=== PATIENT | female | born 1985 | race Caucasian/White ===

== ENCOUNTER → 2016-06-28 | Outpatient (CLI) | payer BC ==
[~2016-06-28] MED LIST: BCPILLS PO
--- NOTE | 2016-06-28 13:48 | DIAGNOSTIC IMAGING REPORT ---
HYSTEROSALPINGOGRAM HISTORY: Infertility. FLUOROSCOPY TIME: 0.8 minutes. 5 fluoroscopic spot images submitted.. TECHNIQUE: The cervix was cannulated by the nuclear process engineer-acid painter and water soluble contrast was instilled into the uterus under fluoroscopic guidance. Multiple spot images were obtained. FINDINGS: Initial images demonstrate contrast opacification of the balloon of the catheter. This is followed by injection of contrast into the uterine cavity. There is a linear filling defect seen along the left side of the uterine cavity suggestive of a synechia. The fallopian tubes are patent and there is free peritoneal spill bilaterally. IMPRESSION: Linear filling defects seen within the left side of the uterine cavity suggestive of synechia. The fallopian tubes are normal in caliber and demonstrate free peritoneal spill bilaterally. Electronically signed by: Duglas Velazco M.D. 06/28/2016 1:46 PM Dictated Date/Time: 06/28/2016 12:02 PM
== END | disposition home or self-care (01) ==
LOC: C.RAD 10:55
PROVIDERS: ATTEND Obstetrics & Gynecology
DX: Z31.41 Encounter for fertility testing (principal)

== ENCOUNTER 2022-09-26 07:32 | Inpatient (IN) ==
[2022-09-26] MEDS ORDERED: OXYTOCIN 30 UNITS/500 ML BAG IV PRN ×2 (08:03→08:41)
[2022-09-26] MEDS ORDERED: LIDOCAINE 1% LOCAL 20 ML VIAL INFIL PRN (08:03)
[2022-09-26 08:56] LABS: Hematocrit (blood only) 36.1 % (37.0-47.0); Hemoglobin 12.2 g/dl (12.0-16.0); Mean Corpuscular Hemoglobin 30.3 pg (25.0-34.0); Mean Corpuscular Hgb Conc 33.8 g/dL (32.0-36.0); Mean Corpuscular Volume 89.8 fL (80.0-100.0); Platelet Count 175 K/uL (130-400); RDW Coefficient of Variation 13.3 % (11.5-14.5); Red Blood Count 4.02 M/uL (4.20-5.40)
[2022-09-26] MEDS: LACTATED RINGER'S 1,000 ML IV PRN ×3 (09:00→18:52)
--- NOTE | 2022-09-26 13:46 | History & Physical Report ---
Date of Service September 26, 2022 Assessment & Plan (1) resulting from in vitro fertilization, antepartum: Plan: Debora is a 37-year-old G1, P0 at 40 weeks 0 days gestational age presents for induction of labor secondary to mild polyhydramnios 1. Fetus -category 1 2. Labor-we will start with oxytocin per regular protocol and undergo artificial rupture of membranes when appropriate. 3. GBS negative 4. Vitals within normal limits (2) Elderly primigravida, antepartum: (3) Polyhydramnios affecting : Admission and Anticipated Discharge Date Admission Date: September 26, 2022 History of Present Illness Primary Care Provider: NO PCP Debora is a 37-year-old G1, P0 currently at 40 weeks 0 days gestational age presents for induction of labor secondary to polyhydramnios. complicated by: and Delivery Plans IVF/ICSI * [facility] [place]-06/05/22 normal echo *Growth US Q4wks @28wks *Weekly NSTs @36wks *Weekly ALBA's @36wks(ICSI only) AMA *Weekly NST's @ 36wks. Polyhydramnios-->resolved *Weekly NSTs @ Dx *Weekly AFIs @ Dx *If pocket >16 refer to [facility] *Deliver between [id number] OB Labs: Blood Type O Positive 03/09/22 Antibody Screen NEGATIVE 03/09/22 Hemoglobin 11.4 g/dl (12.0-16.0) L 06/29/22 Hematocrit 33.7 % (37.0-47.0) L 06/29/22 Mean Corpuscular Volume 87.3 fL (80.0-100.0) 03/09/22 Platelet Count 254 K/uL (130-400) 03/09/22 Rubella IgG Antibody Equivocal (Immune) L 03/09/22 Rapid Plasma Reagin Nonreactive (Nonreactive) 03/09/22 Hepatitis B Surface Antigen. NON-REACTIVE (NON-REACTIVE) 03/09/22 Hepatitis C Antibody (EIA) NON-REACTIVE (NON-REACTIVE) 03/09/22 HIV (1&2) Ag and Ab Confirmation NON-REACTIVE (NON-REACTIVE) 03/09/22 Glucose 1 Hour 50 gm Load 132 mg/dl (70-130) H 06/29/22 OB Optional Labs: Chlamydia trachomatis RNA Not Detected (NotDetected) 03/09/22 Neisseria gonorrhoeae RNA Not Detected (NotDetected) 03/09/22 Labs Reviewed: Declines msafp--mln gbs neg--akh expanded carrier screening negative--ak Allergies Allergy/AdvReac Type Severity Reaction Status Date / Time No Known Allergies Allergy Unknown Verified 09/25/22 14:33 Home Medications Medication Instructions Recorded Confirmed Type Lactobacillus acidophilus 500 500 mmu cells PO DAILY 08/27/21 09/26/22 History million cell tablet fish, borage, flaxseed oils-omega 1 cap PO DAILY 08/27/21 09/26/22 History 3,6,9 comb no.1 1,200 mg capsule ([place] 3-6-9) vit no.133-ferrous 1 tab PO DAILY 08/27/21 09/26/22 History fumarate 28 mg-folic acid 800 mcg tablet () Patient History Medical History (Updated 09/26/22 @ 13:45 by Duc Johnson MD) Crushing injury of right great toe Female fertility problems Surgical History History of hysteroscopy Family History Aunt Diabetes Sister Seizure Other Cancer Myocardial infarction Stroke Social History Smoking Status: Never smoker Second Hand Exposure: No; Do You Dip or Chew Tobacco: No; Tobacco Cessation Education Requested by Patient: No Hx Alcohol Use: No Hx Substance Use: No Preferred Language: Tajik Communication Ability: Effective Alodize Machine Helper Required: No Beliefs That Will Affect Care: None marital status: marital status details: Samir (40) [phone] Current Living Situation: Spouse Current Living Situation Comment: [facility]- current occupational status: employed current occupation: Teacher. Other Information That Helps Us Care for You: No Feels Safe at Home: Yes Safety Concerns: Feels Safe At This Time Assistive Devices: None Physical Exam Genitourinary: OB Exam Abdomen: + vertex Manual OB Exam: + cervical dilation 1 cm, + cervical effacement 70% and + station -2 OB Exam Monitor Tracing: + external FHT monitor used, + external uterine monitor used, + category I and + normal FHT variability Results & Data Vital Signs (Past 12 Hours) Vital Signs Temp Pulse Resp BP 09/26/22 08:50 36.8 C 18 09/26/22 12:20 69 115/69 09/26/22 11:50 16 09/26/22 11:50 37.0 C 16 09/26/22 11:51 64 121/71 09/26/22 11:20 63 127/69 09/26/22 10:51 56 L 112/57 L 09/26/22 10:23 58 L 124/60 09/26/22 09:50 68 136/77 09/26/22 09:15 75 123/76 09/26/22 07:58 72 131/68 Coding Level of Care Code None Diagnoses resulting from in vitro fertilization, antepartum O09.819 Elderly primigravida, antepartum O09.519 Polyhydramnios affecting O40.9XX0
--- NOTE | 2022-09-26 13:48 | Labor Progress Brief Note ---
Date of Service September 26, 2022 Subjective Reason For Note: Routine Evaluation Assessment & Plan (1) resulting from in vitro fertilization, antepartum: Plan: Debora is a 37-year-old G1, P0 at 40 weeks 0 days gestational age presents for induction of labor secondary to mild polyhydramnios 1. Fetus -category 1 2. Labor-we will start with oxytocin per regular protocol. AROM for thin meconium. 3. GBS negative 4. Vitals within normal limits (2) Elderly primigravida, antepartum: (3) Polyhydramnios affecting : Admission and Anticipated Discharge Date Admission Date: September 26, 2022 Physical Exam Genitourinary: Manual OB Exam: + cervical dilation (1.5), + cervical effacement 80%, + station -2 and + amniotic fluid meconium (Thin) OB Exam Monitor Tracing: + external FHT monitor used, + external uterine monitor used, + category I and + normal FHT variability Results & Data Vital Signs (Past 12 Hours) Vital Signs Temp Pulse Resp BP 09/26/22 08:50 36.8 C 18 09/26/22 13:21 66 117/67 09/26/22 13:05 36.6 C 09/26/22 12:20 69 115/69 09/26/22 11:50 16 09/26/22 11:50 37.0 C 16 09/26/22 11:51 64 121/71 09/26/22 11:20 63 127/69 09/26/22 10:51 56 L 112/57 L 09/26/22 10:23 58 L 124/60 09/26/22 09:50 68 136/77 09/26/22 09:15 75 123/76 09/26/22 07:58 72 131/68 Coding Level of Care Code None Diagnoses resulting from in vitro fertilization, antepartum O09.819 Elderly primigravida, antepartum O09.519 Polyhydramnios affecting O40.9XX0
[2022-09-26] MEDS ORDERED: LIDOCAINE 2%/EPINEPHRINE 1:200,000 20 ML PF ONE (14:55)
[2022-09-26] MEDS ORDERED: BUPIVACAINE 0.25% PF 30 ML VIAL ONE (14:55)
[2022-09-26] MEDS ORDERED: ePHEDrine sulfate 50 MG/ML AMP ONE (14:55)
[2022-09-26] MEDS ORDERED: SODIUM CHLORIDE 0.9% PF INJ 10 ML VIAL ONE (14:55)
[2022-09-26] MEDS ORDERED: fentaNYL citrate PF 100 MCG/2 ML VIAL ONE (14:55)
[2022-09-26] MEDS ORDERED: fentaNYL 2MCG/ML ROPIVACAINE 1.25MG/ML 100 ML BAG EPI ONE (14:55)
--- NOTE | 2022-09-26 15:10 | Anesthesiology Consultation ---
Date of Service September 26, 2022 Assessment & Plan (1) Encounter for pre-operative examination: Chart Review Chart Review: Acceptable Risk for Labor Epidural History Height/Weight Height: 5 ft Weight: 83.007 kg Allergies Allergy/AdvReac Type Severity Reaction Status Date / Time No Known Allergies Allergy Unknown Verified 09/25/22 14:33 Medications Home Medications Medication Instructions Recorded Confirmed Last Taken Lactobacillus acidophilus 500 500 mmu cells PO DAILY 08/27/21 09/26/22 09/26/22 06:00 million cell tablet fish, borage, flaxseed oils-omega 1 cap PO DAILY 08/27/21 09/26/22 09/26/22 06:00 3,6,9 comb no.1 1,200 mg capsule ([place] 3-6-9) vit no.133-ferrous 1 tab PO DAILY 08/27/21 09/26/22 09/26/22 06:00 fumarate 28 mg-folic acid 800 mcg tablet () Active Medications Generic Name Dose Route Start Last Admin Trade Name Freq PRN Reason Stop Dose Admin Lactated Ringer's 1,000 mls @ 125 mls/hr 09/26/22 08:03 09/26/22 14:52 Lr IV 09/28/22 08:02 999 mls/hr .Q8H PRN Administration L&D Protocol Protocol Oxytocin 30 units in 500 mls @ 16 mls/hr 09/26/22 08:41 09/26/22 14:30 Pitocin IV 09/28/22 08:40 1.2 units/hr .Q24H PRN 20 mls/hr Labor Induction/Augmentation Titration Protocol 0.96 UNITS/HR Past Medical History Medical History Crushing injury of right great toe Female fertility problems Past Family History Family History Aunt Diabetes Sister Seizure Other Cancer Myocardial infarction Stroke Past Surgical History Surgical History History of hysteroscopy Social History Smoking Status: Never smoker Do You Dip or Chew Tobacco: No Hx Alcohol Use: No Hx Substance Use: No Physical Exam Vital Signs Last Vital Signs Temp 36.6 C 09/26/22 15:01 Pulse 77 09/26/22 15:05 Resp 16 09/26/22 11:50 BP 130/82 09/26/22 15:00 Pulse Ox 99 09/26/22 15:05 Testing Laboratory Results 09/26/22 08:29 Blood Type O Positive 09/26/22 09:25 Antibody Screen NEGATIVE 09/26/22 09:25
[2022-09-26] MEDS ORDERED: NALOXONE HCL 0.4 MG/1 ML VIAL/CARP IV PRN (16:00)
[2022-09-26] MEDS ORDERED: SODIUM CHLORIDE 0.9% PF INJ 10 ML VIAL EPI STA (16:00)
[2022-09-26] MEDS ORDERED: LIDOCAINE 2%/EPINEPHRINE 1:200,000 20 ML PF EPI STA (16:00)
[2022-09-26] MEDS ORDERED: fentaNYL citrate PF 100 MCG/2 ML VIAL EPI STA (16:00)
[2022-09-26] MEDS ORDERED: fentaNYL 2MCG/ML ROPIVACAINE 1.25MG/ML 100 ML BAG EPI PRN (16:00)
[2022-09-26] MEDS ORDERED: ROPIVACAINE 0.5% PF 5 MG/ML 20 ML VIAL EPI PRN (16:00)
[2022-09-26] MEDS ORDERED: NALOXONE HCL 1 MG in SODIUM CHLORIDE 0.9% 1000ML 1,000 ML IV PRN (16:00)
[2022-09-26] MEDS ORDERED: LIDOCAINE 2% MPF LOCAL 5 ML VIAL EPI PRN (16:00)
[2022-09-26] MEDS ORDERED: ePHEDrine sulfate 50 MG/ML AMP IV PRN (16:00)
[2022-09-26] MEDS ORDERED: BUPIVACAINE 0.25% PF 30 ML VIAL EPI PRN (16:00)
[2022-09-26] MEDS ORDERED: BUPIVACAINE 0.25% PF 30 ML VIAL EPI STA (16:00)
[2022-09-26] MEDS ORDERED: SODIUM CHLORIDE 0.9% PF INJ 10 ML VIAL EPI PRN (16:00)
[2022-09-26] MEDS ORDERED: fentaNYL citrate PF 100 MCG/2 ML VIAL EPI PRN (16:00)
[2022-09-26] MEDS ORDERED: ONDANSETRON INJ 2 MG/ML 2 ML VIAL IV PRN (16:00)
--- NOTE | 2022-09-26 21:18 | Labor Progress Brief Note ---
Date of Service September 26, 2022 Subjective Reason For Note: Routine Evaluation Assessment & Plan (1) resulting from in vitro fertilization, antepartum: Plan: Debora is a 37-year-old G1, P0 at 40 weeks 0 days gestational age presents for induction of labor secondary to mild polyhydramnios 1. Fetus -category 1 2. Labor- progressing well. Continue Pitocin, AROM for thin meconium. 3. GBS negative 4. Vitals mostly normal blood pressures with occasional mild range blood pressures noted (2) Elderly primigravida, antepartum: (3) Polyhydramnios affecting : Admission and Anticipated Discharge Date Admission Date: September 26, 2022 Physical Exam Genitourinary: Manual OB Exam: + cervical dilation 7 cm, + cervical effacement 100%, + station 0 and + amniotic fluid meconium OB Exam Monitor Tracing: + external FHT monitor used, + external uterine monitor used and + category I Results & Data Vital Signs (Past 12 Hours) Vital Signs Temp Pulse Resp BP Pulse Ox 09/26/22 18:54 37.0 C 18 09/26/22 21:15 70 98 09/26/22 21:10 75 98 09/26/22 21:05 36.5 C 79 18 100 09/26/22 21:04 96 H 128/78 09/26/22 21:00 81 99 09/26/22 20:55 74 98 09/26/22 20:54 81 140/70 09/26/22 20:50 76 99 09/26/22 20:45 86 98 09/26/22 20:43 83 144/66 H 09/26/22 20:40 75 97 09/26/22 20:35 86 98 09/26/22 20:33 71 142/72 H 09/26/22 20:30 68 98 09/26/22 20:25 98 09/26/22 20:25 78 09/26/22 20:25 78 134/66 09/26/22 20:20 86 98 09/26/22 20:15 96 H 98 09/26/22 20:13 95 H 138/75 09/26/22 20:10 83 98 09/26/22 20:05 73 98 09/26/22 20:00 75 97 09/26/22 19:55 76 96 09/26/22 19:53 68 111/54 L 09/26/22 19:50 76 97 09/26/22 19:45 73 95 09/26/22 19:43 81 114/59 L 09/26/22 19:40 75 96 09/26/22 19:35 69 96 09/26/22 19:33 70 114/55 L 09/26/22 19:30 81 95 09/26/22 19:25 72 96 09/26/22 19:23 78 108/55 L 09/26/22 19:20 68 95 09/26/22 19:15 70 96 09/26/22 19:14 68 110/52 L 09/26/22 19:10 69 96 09/26/22 19:05 62 118/56 L 97 09/26/22 19:00 18 09/26/22 19:00 68 18 96 09/26/22 18:55 99 09/26/22 18:55 76 09/26/22 18:55 72 129/75 09/26/22 18:50 76 98 09/26/22 18:45 71 97 09/26/22 18:43 66 140/65 09/26/22 18:40 77 97 09/26/22 18:35 71 97 09/26/22 18:33 72 133/60 09/26/22 18:30 65 16 97 09/26/22 18:25 75 98 09/26/22 18:20 75 97 09/26/22 18:15 75 97 09/26/22 18:13 72 137/72 09/26/22 18:10 86 99 09/26/22 18:05 81 98 09/26/22 18:03 75 143/73 H 09/26/22 18:00 75 16 97 09/26/22 17:55 80 153/72 H 99 09/26/22 17:50 82 98 09/26/22 17:45 77 98 09/26/22 17:43 74 128/94 09/26/22 17:40 82 99 09/26/22 17:35 77 98 09/26/22 17:33 90 133/67 09/26/22 17:30 82 16 99 09/26/22 17:25 79 98 09/26/22 17:24 67 129/70 09/26/22 17:20 99 H 99 09/26/22 17:15 63 97 09/26/22 17:13 88 130/59 L 09/26/22 17:10 75 97 09/26/22 17:05 73 98 09/26/22 17:03 80 131/63 09/26/22 17:00 36.4 C L 92 H 18 98 09/26/22 16:55 98 H 98 09/26/22 16:50 58 L 99 09/26/22 16:49 79 136/63 09/26/22 16:45 69 98 09/26/22 16:46 71 132/60 09/26/22 16:40 73 98 09/26/22 16:39 70 122/62 09/26/22 16:35 98 09/26/22 16:35 78 09/26/22 16:35 65 131/62 09/26/22 16:05 18 09/26/22 16:05 18 09/26/22 16:30 18 09/26/22 16:30 18 09/26/22 16:30 99 09/26/22 16:30 58 L 09/26/22 16:30 79 134/58 L 09/26/22 16:25 58 L 98 09/26/22 16:24 65 132/63 09/26/22 16:20 72 97 09/26/22 16:21 70 16 133/62 09/26/22 16:15 74 130/59 L 98 09/26/22 16:10 91 H 16 99 09/26/22 16:09 97 H 139/63 09/26/22 16:07 86 131/60 09/26/22 16:05 97 09/26/22 16:05 81 09/26/22 16:05 81 121/56 L 09/26/22 16:03 78 118/58 L 09/26/22 16:00 79 96 09/26/22 16:01 71 16 120/56 L 09/26/22 15:59 71 122/60 09/26/22 15:57 67 16 117/56 L 09/26/22 15:55 60 99 09/26/22 15:56 57 L 120/55 L 09/26/22 15:53 67 133/60 09/26/22 15:51 74 127/59 L 09/26/22 15:50 84 92 09/26/22 15:48 84 85 L 09/26/22 15:45 80 99 09/26/22 15:40 86 96 09/26/22 15:35 69 94 09/26/22 15:32 62 91 09/26/22 15:30 89 L 09/26/22 15:30 83 09/26/22 15:30 70 131/73 09/26/22 15:25 69 87 L 09/26/22 15:20 73 99 09/26/22 15:17 77 94 09/26/22 15:15 75 99 09/26/22 15:16 78 143/65 H 09/26/22 15:10 82 100 09/26/22 15:05 77 99 09/26/22 15:01 36.6 C 09/26/22 15:00 87 130/82 100 09/26/22 14:55 74 100 09/26/22 14:50 71 95 09/26/22 14:45 78 98 09/26/22 14:21 59 L 121/71 09/26/22 13:51 67 122/59 L 09/26/22 13:21 66 117/67 09/26/22 13:05 36.6 C 09/26/22 12:20 69 115/69 09/26/22 11:50 16 09/26/22 11:50 37.0 C 16 09/26/22 11:51 64 121/71 09/26/22 11:20 63 127/69 09/26/22 10:51 56 L 112/57 L 09/26/22 10:23 58 L 124/60 09/26/22 09:50 68 136/77 Coding Level of Care Code None Diagnoses resulting from in vitro fertilization, antepartum O09.819 Elderly primigravida, antepartum O09.519 Polyhydramnios affecting O40.9XX0
[2022-09-27] MEDS: LACTATED RINGER'S 1,000 ML IV PRN ×2 (02:56→09:38)
[2022-09-27] MEDS ORDERED: ceFAZolin 2000MG 2,000 MG/15 ML SYR IV SCH (06:00)
[2022-09-27] MEDS: OXYTOCIN 30 UNITS/500 ML BAG IV PRN ×2 (06:30→07:09)
[2022-09-27] MEDS ORDERED: SODIUM CHLORIDE 0.9% 250 ML IV PRN (06:34)
[2022-09-27] MEDS ORDERED: miSOPROStoL 200 MCG TAB ONE (06:51)
[2022-09-27] MEDS ORDERED: METHYLERGONOVINE MALEATE 0.2 MG/ML AMP ONE (06:51)
[2022-09-27] MEDS ORDERED: ceFAZolin 330 MG/ML 1 GM VIAL IV STA (06:53)
[2022-09-27 08:00] LABS: Basophils # (auto) 0.02 K/uL (0-0.2); Basophils % (auto) 0.1 %; Hematocrit (blood only) 31.7 % (37.0-47.0); Hemoglobin 10.7 g/dl (12.0-16.0); Immature Granulocytes # (auto) 0.09 K/uL (0.01-0.20); Immature Granulocytes % (auto) 0.6 %; Lymphocytes # (auto) 1.08 K/uL (1.2-3.4); Lymphocytes % (auto) 7.1 %; Mean Corpuscular Hemoglobin 30.9 pg (25.0-34.0); Mean Corpuscular Hgb Conc 33.8 g/dL (32.0-36.0); Mean Corpuscular Volume 91.6 fL (80.0-100.0); Mean Platelet Volume 11.7 fL (9.4-12.4); Monocytes # (auto) 0.61 K/uL (0.11-0.59); Neutrophils # (auto) 13.34 K/uL (1.40-6.50); Neutrophils % (auto) 88.2 %; Platelet Count 210 K/uL (130-400); RDW Coefficient of Variation 13.4 % (11.5-14.5); RDW Standard Deviation 44.9 fL (36.4-46.3); Red Blood Count 3.46 M/uL (4.20-5.40); White Blood Count 15.14 K/ul (4.8-10.8)
--- NOTE | 2022-09-27 08:45 | Operative Report ---
PG Post Operative Report Pre & Post Diagnosis Preop diagnosis: single intrauterine at 40 weeks 1 day gestational age, polyhydramnios, advanced maternal age Postop diagnosis: Same as above, retained placenta requiring manual extraction I identified the patient and participated in the time-out.: Yes Procedure Normal spontaneous vaginal delivery, manual extraction of placenta, curettage of uterus, repair second-degree laceration Surgeon Duc Johnson MD Specialist Physician L&D staff Estimated Blood Loss 800 Findings Consistent with Post-Op Diagnosis Patient presented for induction of labor at 40 weeks gestational age secondary to polyhydramnios. Patient was started on oxytocin per regular protocol and underwent artificial rupture of membranes for thin meconium. She received an epidural for anesthesia and progressed in labor to complete complete +1-2 station. Patient pushed for approximately 2 hours to achieve delivery. After delivery a retained placenta was noted requiring manual extraction and gentle curettage. Specimens Placenta Description of Procedure Patient progressed to 10 cm dilated 100% effaced +2 station pushed over intact perineum with epidural anesthesia and delivered a viable with weight pending Apgars of 7 and 9 at 1 and 5 minutes respectively. The head of the delivered in ALYSSA position and rest due to right transverse. No nuchal cord was noted. There was noted to be a compound posterior arm which was reduced body and shoulders quickly followed was noted to have good tone but not a spontaneous cry after delivery. Stimulation of the for marlene roximately 15 to 20 seconds did not note spontaneous cry and the cord was double clamped and cut taken over the waiting nursery staff. soon became vigorous after taken to the warmer. Attention was then turned to delivery of the placenta which did not deliver. There is noted to be very thin umbilical cord and gentle cord traction was applied. There is periods of uterine massage and patient pushing an attempt to deliver the placenta which were all unsuccessful. We allowed approximately 40 minutes for spontaneous delivery of the placenta at which time the patient was noted to have bleeding occurring around the placenta. I discussed with Debora at that time that she was having increasing bleeding and placenta was not delivering spontaneously. In addition the patient was noted to have low blood pressures in the 60s/30s. Discussed the need for manual extraction to adequately assess bleeding and patient was verbally consented. Manual extraction was performed with 3 total manual sweeps with the majority of placenta noted to have delivered. Concern for retained smaller fragments necessitated for a gentle global curettage with a banjo curette. The endometrium was very gently globally curetted and a few pieces of membrane were obtained on the first 2 passes. There was noted to be 2 negative passes following. Patient was noted to have firm fundus at the umbili cus with minimal bleeding noted. I dosed Cytotec 800 mcg per rectum and Methergine following the manual extraction for ongoing bleeding control. Patient was bolused fluids when her blood pressure was noted to be in the 60s/30s and anesthesia was called to assist. A stat CBC, type and screen and 2 units of packed red blood cells ordered to be available if needed. I observe the patient for approximately 30 to 45 minutes after the delivery of placenta to ensure bleeding control. During that process bleeding was noted to be within the normal expected bleeding following delivery and uterus remained firm and at the umbilicus. Blood pressures quickly responded to the fluid bolus and bleeding control measures implemented. Both mother and stable in the immediate post delivery. I attest to the content of the Intraoperative Record and any orders documented therein. Any exceptions are noted below. OB Procedure charges OB Charges [id number] PP Curettage Procedure Estimated blood loss (mL): 800 Anesthesia type: Epidural Labor Stage Duration Labor - Stage 1 Duration: 14.51 Labor - Stage 2 Duration: 2.06 Labor - Stage 3 Duration: 50 Total Length of Labor: 17.41
[2022-09-27 09:01] LABS: Hemoglobin 9.4 g/dl (12.0-16.0)
--- NOTE | 2022-09-27 10:15 | Anesthesia Procedure Note ---
Date of Service September 27, 2022 Anesthesia Post Epidural Note Vital Signs Vital Signs: Temp Pulse Resp BP Pulse Ox 37.0 C 77 18 133/63 97 09/27/22 09:15 09/27/22 10:12 09/27/22 09:15 09/27/22 10:07 09/27/22 10:12 Pain Intensity Bilateral Abdomen: Pain Intensity: 1 Notes Mental Status: alert / awake / arousable Nausea / Vomiting: adequately controlled Pain: adequately controlled Airway Patency, RR, SpO2: stable & adequate BP & HR: stable & adequate Hydration State: stable & adequate Neuraxial Anesthesia: was administered and sensory block is resolving Anesthetic Complications: no major complications apparent and Pt Satisfied with anesthetic care Epidural: Removed without complications and With tip intact
[2022-09-27] MEDS ORDERED: HYDROCORTISONE ACETATE 25 MG SUPP PR PRN (13:33)
[2022-09-27] MEDS ORDERED: bisacodyL 10 MG SUPP PR PRN (13:33)
[2022-09-27] MEDS ORDERED: ACETAMINOPHEN 325 MG TAB PO PRN (13:33)
[2022-09-27] MEDS ORDERED: MEASLES, MUMPS & RUBELLA VIRUS VIAL SQ ONE (13:33)
[2022-09-27] MEDS ORDERED: DIPHTHERIA/TETANUS/PERTUSSIS Vaccine (Tdap, Age 7+yrs) 0.5mL SYR/VL IM ONE (13:33)
[2022-09-27] MEDS ORDERED: OXYTOCIN 30 UNITS/500 ML BAG IV PRN (13:33)
[2022-09-27] MEDS ORDERED: BENZOCAINE 20% SPRY 85 APPLN/85 GM CAN EXT PRN (13:33)
[2022-09-27] MEDS: IBUPROFEN 600 MG TAB PO PRN ×2 (13:43→20:59)
[2022-09-27] MEDS: ceFAZolin 2000MG 2,000 MG/15 ML SYR IV SCH ×2 (15:22→23:31)
--- NOTE | 2022-09-27 20:07 | Obstetrical Progress Note ---
Date of Service <Tushar Lainez MD - Last Filed: 09/28/22 07:17> September 27, 2022 Assessment & Plan <Tushar Lainez MD - Last Filed: 09/28/22 07:17> (1) care following vaginal delivery: 37 yo , status post , day 1, on 09/27/22 s/p minor PPH (800 mL EBL) following retained placenta and manual placental extraction w/ subsequent gentle curettage - Pt doing well clinically. Feels well today. Eating well, voiding well, amb ulating well. Pain well controlled with PRN pain meds. - Routine care -- OOB, ambulation, diet progression as tolerated Vital Signs reviewed and WNL. (Tmax at 37.4) except as noted: mild tachycardia (HR up to 130, 123, 119) and low BP (88/44, 77/42) since delivery. Hemoglobin Reviewed. 12.2 (09/26/22), 9.4 (09/27/22) 6.6 (today), 1 unit of PRBCs is recommended for patient. Blood Type: O+, GBS-, Rubella Equivocal. (vaccinate mother against rubella post- delivery?) Encourage ambulation, monitor and control pain with Motrin PRN, resume regular diet, monitor lochia. Breast feeding encouraged. After discharge will have 6 week follow-up with Dr. Johnson. Pt counselled on discharge instructions??? <Lauryn Macedo MD - Last Filed: 09/28/22 08:24> (1) care following vaginal delivery: Subjective <Tushar Lainez MD - Last Filed: 09/28/22 07:17> Ambulation: limited ambulation (still very sore, beginning to get back to nml ambulation) Voiding: no voiding problems and no incontinence (had a small BM) Passing Gas:: Yes Diet Tolerance:: regular diet Lochia:: Small (since noon of yesterday) Current Pain Level(1-10): 3 (in the perineal area) 37 yo , s/p , day 1 Constitutional: + chills and + sweats; no fever (has felt feverish in absence of objective fevers) Respiratory: + cough (dry cough); no dyspnea Cardiovascular: no chest pain or no palpitations Gastrointestinal: no nausea (no N/V/D since moving to mother-baby unit), no vomiting or no diarrhea/loose stools Genitourinary (female): + dysuria; no urinary frequency or no urinary urgency Musculoskeletal: + back pain; no myalgia (no calf pain) Physical Exam <Tushar Lainez MD - Last Filed: 09/28/22 07:17> Constitutional WD/WN, vitals as above Respiratory normal respiratory effort, lungs clear to auscultation Cardiovascular RRR, no murmur, no edema Musculoskeletal Extremities: extremities normal to inspection Results & Data <Tushar Lainez MD - Last Filed: 09/28/22 07:17> Vital Signs (Past 12 Hours) Vital Signs Temp Pulse Pulse Resp BP BP Pulse Ox 09/27/22 19:04 36.7 C 82 18 115/70 98 09/27/22 15:20 36.4 C L 84 18 132/72 97 09/27/22 13:45 36.4 C L 85 18 125/65 98 09/27/22 12:30 18 09/27/22 11:00 16 09/27/22 09:15 37.0 C 18 09/27/22 08:45 16 09/27/22 08:30 16 09/27/22 08:15 16 09/27/22 12:57 96 H 98 09/27/22 12:52 99 H 96 09/27/22 12:47 100 H 97 09/27/22 12:42 88 96 09/27/22 12:37 105 H 97 09/27/22 12:32 105 H 97 09/27/22 12:27 101 H 97 09/27/22 12:22 101 H 97 09/27/22 12:17 119 H 98 09/27/22 12:12 112 H 97 09/27/22 12:07 110 H 97 09/27/22 12:02 102 H 97 09/27/22 11:57 98 09/27/22 11:57 105 H 09/27/22 11:57 102 H 122/57 L 09/27/22 11:52 123 H 99 09/27/22 11:51 130 H 129/65 09/27/22 11:47 118 H 98 09/27/22 11:42 101 H 97 09/27/22 11:37 97 09/27/22 11:37 107 H 09/27/22 11:37 103 H 133/66 09/27/22 11:32 102 H 97 09/27/22 11:27 116 H 99 09/27/22 11:22 112 H 139/62 97 09/27/22 11:17 106 H 97 09/27/22 11:12 90 97 09/27/22 11:07 86 132/60 97 09/27/22 11:02 85 99 09/27/22 10:57 96 H 97 09/27/22 10:52 103 H 135/60 98 09/27/22 10:47 94 H 99 09/27/22 10:42 111 H 98 09/27/22 10:37 108 H 122/58 L 98 09/27/22 10:32 107 H 98 09/27/22 10:27 97 H 96 09/27/22 10:22 89 127/57 L 98 09/27/22 10:17 85 98 09/27/22 10:12 77 97 09/27/22 10:07 87 133/63 97 09/27/22 10:02 85 97 09/27/22 09:57 75 97 09/27/22 09:52 77 116/58 L 97 09/27/22 09:47 84 96 09/27/22 09:42 86 100 09/27/22 09:39 82 104/51 L 09/27/22 09:37 60 97 09/27/22 09:36 81 77/42 L 09/27/22 09:33 77 88/44 L 09/27/22 09:32 94 H 96 09/27/22 09:31 107 H 92 09/27/22 09:26 94 H 99 09/27/22 09:23 103 H 128/64 09/27/22 09:21 111 H 99 09/27/22 09:16 107 H 98 09/27/22 09:11 105 H 97 09/27/22 09:06 113 H 98 09/27/22 09:01 107 H 99 09/27/22 08:56 102 H 99 09/27/22 08:51 101 H 97 09/27/22 08:52 108 H 117/57 L 09/27/22 08:46 105 H 98 09/27/22 08:41 106 H 98 09/27/22 08:38 97 H 130/59 L 09/27/22 08:36 108 H 98 09/27/22 08:31 108 H 98 09/27/22 08:26 107 H 98 09/27/22 08:21 122 H 97 09/27/22 08:22 123 H 106/57 L 09/27/22 08:16 100 H 98 09/27/22 08:11 100 H 98 09/27/22 08:07 98 H 122/58 L O2 Del Method 09/27/22 19:04 Room Air 09/27/22 15:20 Room Air 09/27/22 13:45 Room Air 09/27/22 12:30 09/27/22 11:00 09/27/22 09:15 09/27/22 08:45 09/27/22 08:30 09/27/22 08:15 09/27/22 12:57 09/27/22 12:52 09/27/22 12:47 09/27/22 12:42 09/27/22 12:37 09/27/22 12:32 09/27/22 12:27 09/27/22 12:22 09/27/22 12:17 09/27/22 12:12 09/27/22 12:07 09/27/22 12:02 09/27/22 11:57 09/27/22 11:57 09/27/22 11:57 09/27/22 11:52 09/27/22 11:51 09/27/22 11:47 09/27/22 11:42 09/27/22 11:37 09/27/22 11:37 09/27/22 11:37 09/27/22 11:32 09/27/22 11:27 09/27/22 11:22 09/27/22 11:17 09/27/22 11:12 09/27/22 11:07 09/27/22 11:02 09/27/22 10:57 09/27/22 10:52 09/27/22 10:47 09/27/22 10:42 09/27/22 10:37 09/27/22 10:32 09/27/22 10:27 09/27/22 10:22 09/27/22 10:17 09/27/22 10:12 09/27/22 10:07 09/27/22 10:02 09/27/22 09:57 09/27/22 09:52 09/27/22 09:47 09/27/22 09:42 09/27/22 09:39 09/27/22 09:37 09/27/22 09:36 09/27/22 09:33 09/27/22 09:32 09/27/22 09:31 09/27/22 09:26 09/27/22 09:23 09/27/22 09:21 09/27/22 09:16 09/27/22 09:11 09/27/22 09:06 09/27/22 09:01 09/27/22 08:56 09/27/22 08:51 09/27/22 08:52 09/27/22 08:46 09/27/22 08:41 09/27/22 08:38 09/27/22 08:36 09/27/22 08:31 09/27/22 08:26 09/27/22 08:21 09/27/22 08:22 09/27/22 08:16 09/27/22 08:11 09/27/22 08:07 <Lauryn Macedo MD - Last Filed: 09/28/22 08:24> Co-Signing Physician Notes Resident Physician Supervision Note: I interviewed and examined the patient. Discussed with Dr. Lainez and agree with findings and plan as documented in the note. Any exceptions or clarificat ions are listed here: PP1 s/p , doing well. Denies lightheadedness/dizziness. VSS, exam benign and wnl. H/H is 6.6/19.2, will transfuse 1u prbc. Reviewed risks including fevers, chills, trali, infection and pt amenable. Plan for pretreatment with benadryl Documented By: Lauryn Macedo MD
[2022-09-27] MEDS: DOCUSATE SODIUM 100 MG CAP PO SCH (20:59)
[2022-09-28] MEDS: IBUPROFEN 600 MG TAB PO PRN ×4 (03:45→19:45)
[2022-09-28 06:46] LABS: Hematocrit (blood only) 19.2 % (37.0-47.0); Hemoglobin 6.6 g/dl (12.0-16.0); Mean Corpuscular Hemoglobin 31.3 pg (25.0-34.0); Mean Corpuscular Hgb Conc 34.4 g/dL (32.0-36.0); Mean Platelet Volume 11.2 fL (9.4-12.4); Platelet Count 140 K/uL (130-400); RDW Coefficient of Variation 13.4 % (11.5-14.5); RDW Standard Deviation 44.4 fL (36.4-46.3); Red Blood Count 2.11 M/uL (4.20-5.40); White Blood Count 14.82 K/ul (4.8-10.8)
[2022-09-28] MEDS ORDERED: SODIUM CHLORIDE 0.9% 250 ML IV PRN (07:12)
[2022-09-28] MEDS ORDERED: diphenhydrAMINE Capsule 25 MG CAP PO ONE (07:15)
[2022-09-28] MEDS: FERROUS SULFATE 325 MG TAB PO SCH (08:09)
[2022-09-28] MEDS: PRENATAL VITAMIN 1 TAB PO SCH (08:09)
[2022-09-28] MEDS: DOCUSATE SODIUM 100 MG CAP PO SCH ×2 (08:10→19:45)
--- NOTE | 2022-09-28 09:55 | Obstetrical Progress Note ---
Date of Service <Tushar Lainez MD - Last Filed: 09/29/22 07:12> September 28, 2022 Assessment & Plan <Tushar Lainez MD - Last Filed: 09/29/22 07:12> (1) care following vaginal delivery: 37 yo , status post , day 2, on 09/27/22 s/p minor PPH (800 mL EBL) following retained placenta and manual placental extraction w/ subsequent gentle curettage - Pt doing well clinically. Feels well today. Eating well, voiding well, amb ulating well. Pain well controlled with PRN pain meds. - Routine care -- OOB, ambulation, diet progression as tolerated Vital Signs reviewed and WNL. (Tmax at 37.4) except as noted: mild tachycardia (HR up to 130, 123, 119) and low BP (88/44, 77/42) same day post-delivery. Normal vital signs since. Hemoglobin Reviewed. 12.2 (09/26/22), 9.4 (09/27/22) 6.6 (09/28/22), 1 unit of PRBCs transfused. Blood Type: O+, GBS-, Rubella Equivocal. (vaccination against Rubella pending for day of discharge) Encourage ambulation, monitor and control pain with Motrin PRN, resume regular diet, monitor lochia. Breast feeding encouraged. After discharge will have 6 week follow-up with Dr. Johnson. Pt counselled on discharge instructions; instructions provided as hardcopy in discharge packet. <Kacy Colon MD, FACOG - Last Filed: 09/29/22 07:50> (1) care following vaginal delivery: Subjective <Tushar Lainez MD - Last Filed: 09/29/22 07:12> Ambulation: ambulating normally Voiding: no voiding problems and no incontinence Passing Gas:: Yes Diet Tolerance:: regular diet Lochia:: Small Feeding Type:: breast feeding Current Pain Level(1-10): 2 (perineal region, especially when urinating) 37 yo , s/p , day 2 Constitutional: + sweats (less sweating); no fever (has felt feverish in absence of objective fevers) or no chills Respiratory: + cough (dry cough but easing up); no dyspnea Cardiovascular: no chest pain or no palpitations Gastrointestinal: no nausea (no N/V/D since moving to mother-baby unit), no vomiting or no diarrhea/loose stools Genitourinary (female): + dysuria; no urinary frequency or no urinary urgency Musculoskeletal: + back pain (improving); no myalgia (no calf pain) Physical Exam <Tushar Lainez MD - Last Filed: 09/29/22 07:12> Constitutional WD/WN, vitals as above Respiratory normal respiratory effort, lungs clear to auscultation Cardiovascular RRR, no murmur, no edema Gastrointestinal (Abdomen) normal bowel sounds, soft, nontender, no hepatosplenomegaly Uterine fundus felt a few cm below the umbilicus, firm. Musculoskeletal Extremities: extremities normal to inspection Results & Data <Tushar Lainez MD - Last Filed: 09/29/22 07:12> Vital Signs (Past 12 Hours) Vital Signs Temp Pulse Pulse Resp BP BP Pulse Ox 09/28/22 09:45 36.6 C 84 16 114/76 99 09/28/22 09:25 36.5 C 84 16 117/63 99 09/28/22 09:16 36.4 C L 88 16 108/68 98 09/28/22 09:15 36.4 C L 88 16 108/68 98 09/28/22 07:19 36.5 C 77 18 108/63 98 09/28/22 03:43 36.4 C L 84 18 113/70 97 09/27/22 22:34 36.5 C 88 18 114/69 99 O2 Del Method O2 Flow Rate 09/28/22 09:45 09/28/22 09:25 09/28/22 09:16 0 09/28/22 09:15 0 09/28/22 07:19 Room Air 09/28/22 03:43 Room Air 09/27/22 22:34 Room Air <Kacy Colon MD, FACOG - Last Filed: 09/29/22 07:50> Co-Signing Physician Notes Resident Physician Supervision Note: I interviewed and examined the patient. Discussed with Dr. Lainez and agree with findings and plan as documented in the note. Any exceptions or clarifications are listed here: Doing well hgb 6.6__>7.6, appropriate for one unit transfused. Feeling well and desires d/c. INstructions given. f/u in 6 weeks. Call with concerns or issues. Documented By: Kacy Colon MD, FACOG
[2022-09-28] MEDS ORDERED: bisacodyL 5 MG TABEC PO SCH (20:00)
[2022-09-29] MEDS: IBUPROFEN 600 MG TAB PO PRN ×2 (03:19→08:09)
[2022-09-29 07:37] LABS: Hematocrit (blood only) 22.1 % (37.0-47.0); Hemoglobin 7.6 g/dl (12.0-16.0)
[2022-09-29] MEDS: PRENATAL VITAMIN 1 TAB PO SCH (08:09)
[2022-09-29] MEDS: FERROUS SULFATE 325 MG TAB PO SCH (08:09)
[2022-09-29] MEDS: DOCUSATE SODIUM 100 MG CAP PO SCH (08:09)
== END 2022-09-29 10:16 | disposition home or self-care (01) | DRG 806 ==
LOC: 4S1 07:32 → 4E2 09-27 13:58